=== PATIENT | female | born 1935 | race Caucasian/White ===

== ENCOUNTER 2020-01-17 05:39 | Day surgery (SDC) | payer MEDICARE, OTHER ==
[~2020-01-17] VITALS: Ht 165.1 cm; Wt 42.6 kg
[2020-01-17] VITALS (8 sets, daily range): BP systolic 115–129; BP diastolic 71–88
[~2020-01-17 05:39] MED LIST: HYDR-3964 PO; VANCOMYCIN INJ 1000 MG in NORMAL SALINE 250ml IV.SOLN IV ONE; cefazolin/dext.iso 2gm/100ml 100 ML IV ONE; famotidine 20mg tablet PO ONE; ringers solution, lacted 1,000 ML IV SCH
--- NOTE | 2020-01-17 06:30 | NUR ---
PATIENT HAS LARGE HEMATOMA TO RIGHT ARM BICEPT REGION DISTAL FROM RIGHT SHOULDER DRESSING. DR AGUILLON NOTIFIED AND HE IS AWARE AND STATED BRUISE WAS PRIOR TO SURGERY AND HAPPENED WHEN PATIENT FELL.
[2020-01-17] MEDS ORDERED: epiNEPHrine 1 mg/ml inj ONE (06:41)
[2020-01-17] MEDS ORDERED: ROPIVAcaine 0.5% (5mg/ml) 30ml vial ONE (06:41)
[2020-01-17] MEDS ORDERED: BUPIVAcaine/PF 2.5 mg/ml (0.25%) 30ml vial ONE (06:41)
[2020-01-17] MEDS ORDERED: ketorolac trometh. 30mg/ml inj. ONE (06:41)
[2020-01-17] MEDS ORDERED: cloNIDine hcl/PF 100mcg/ml inj ONE (06:41)
[2020-01-17] MEDS ORDERED: vancomycin 1,000mg inj ONE (06:41)
[2020-01-17 06:49] LABS: BASOPHILS # (AUTO) 0.1 X10'3 (0-0.2); BASOPHILS % (AUTO) 0.7 % (0-1); EOSINOPHILS # (AUTO) 0.1 X10'3 (0-0.9); EOSINOPHILS % (AUTO) 0.6 % (0-6); LYMPHOCYTES # (AUTO) 1.3 X10'3 (1.1-4.8); LYMPHOCYTES % (AUTO) 15.1 % (21-51); MEAN CORPUSCULAR HEMOGLOBIN 29.2 PG (27.0-31.0); MEAN CORPUSCULAR HGB CONC 33.3 g/dL (33.0-36.5); MEAN CORPUSCULAR VOLUME 87.8 FL (78-98); MONOCYTES % (AUTO) 11.4 % (2-12); NEUTROPHILS # (AUTO) 6.3 X10'3 (1.8-7.7); NEUTROPHILS % (AUTO) 72.2 % (42-75); PRE OP HEMATOCRIT 38.3 % (35.0-45.0); PRE OP HEMOGLOBIN 12.7 g/dL (12.0-16.0); PRE OP PLATELET COUNT 355 X10'3 (140-440); RED BLOOD COUNT 4.37 X10'6 (4.20-5.60); RED CELL DISTRIBUTION WIDTH 17.5 % (11.5-14.5)
[2020-01-17 06:56] LABS: ALBUMIN/GLOBULIN RATIO 0.8 (1.1-1.5); ALKALINE PHOSPHATASE 67 IU/L (46-116); BLOOD UREA NITROGEN 17 MG/DL (7-18); BUN/CREATININE RATIO 21.8 (6.6-38.0); CHLORIDE 105 MMOL/L (99-107); CREATININE 0.78 MG/DL (0.40-0.90); PRE OP ALT 11 U/L (30-65); PRE OP ANION GAP 5 (8-16); PRE OP AST 14 U/L (10-37); PRE OP BILIRUB, TOTAL 0.4 MG/DL (0.0-1.0); PRE OP GLUCOSE 88 MG/DL (70-104); PRE OP POTASSIUM 3.8 MMOL/L (3.4-5.1); PRE OP SODIUM 138 MMOL/L (135-145); TOTAL CARBON DIOXIDE 27.8 MMOL/L (24-32); TOTAL PROTEIN 6.7 G/DL (6.4-8.2); eGFR 71 ML/MIN
[2020-01-17] MEDS ORDERED: fentaNYL/PF 50MCG/1 ML 2ML syringe ONE ×2 (07:18→08:19)
[2020-01-17] MEDS ORDERED: ringers solution, lacted 1,000 ML IV SCH (08:09)
[2020-01-17] MEDS ORDERED: ondansetron/PF 4mg/2ml inj IV PRN (08:10)
[2020-01-17] MEDS ORDERED: HYDROmorphone inj. 0.5 MG/0.5 ML DISP.SYRIN IV PRN (08:10)
[2020-01-17] MEDS ORDERED: fentaNYL/PF 50MCG/1 ML 2ML syringe IV PRN (08:10)
[2020-01-17] MEDS ORDERED: propofol inj 20 ML IV ONE (08:14)
[2020-01-17] MEDS ORDERED: LIDOcaine 2% (20mg/ml) 5ml vial ONE (08:14)
[2020-01-17] MEDS ORDERED: rocuronium 10mg/ml inj IV ONE (08:14)
[2020-01-17] MEDS ORDERED: dexamethasone sod phosphate 4mg/ml inj. ONE (08:14)
[2020-01-17] MEDS ORDERED: neostigmine methylsulfate 1 MG/ML 10ml vial ONE (08:14)
[2020-01-17] MEDS ORDERED: ondansetron/PF 4mg/2ml inj ONE (08:14)
[2020-01-17] MEDS ORDERED: glycopyrrolate 0.2mg/ml inj ONE (08:14)
--- NOTE | 2020-01-17 08:35 | NUR ---
Received from OR via BED, accompanied by Anesthesiologist DR CLEMENS-- and report given by Anesthesiolgist. PATIENT A&OX4, DENIES PAIN, V/S WNL, NEUROVASCULAR CHECKS INTACT, 18G PIV LUE, SCD ON, DRESSING TO RIGHT ARM SHOULDER CDI WITH SLING ON AND COLD POWDER PACK.
[2020-01-17] MEDS ORDERED: ePHEDrine 50MG/ML INJ. ONE (08:47)
--- NOTE | 2020-01-17 09:35 | NUR ---
PATIENT A&OX4, DENIES PAIN, V/S WNL, NEUROVASCULAR CHECKS INTACT, 18G PIV LUE D/C, SCD OFF, DRESSING TO RIGHT ARM SHOULDER CDI WITH SLING ON AND COLD POWDER PACK. I HAVE REVIEWED D/C INSTRUCTIONS WITH PATIENT AND FAMILY AND THEY HAVE VERBALIZED UNDERSTANDING. PATIENT D/C HOME WITH ALL BELONGINGS AND FAMILY GAVE TRANSPORT HOME.
== END 2020-01-17 09:35 | disposition home or self-care (01) ==
LOC: PAS 05:39
PROVIDERS: ATTEND Orthopaedic Surgery
DX: S42.231A 3-part fracture of surgical neck of right humerus, initial encounter for closed fracture (principal); F17.210 Nicotine dependence, cigarettes, uncomplicated; J44.9 Chronic obstructive pulmonary disease, unspecified; Z79.899 Other long term (current) drug therapy; Z88.5 Allergy status to narcotic agent; W19.XXXA Unspecified fall, initial encounter; Y93.89 Activity, other specified; Y92.89 Other specified places as the place of occurrence of the external cause; Y99.8 Other external cause status
CPT/HCPCS: 23615; 36415; 71045; 73020; 76000; 80053; 85025; 93005; C1713; J0171; J0735; J1100; J1885; J2001; J2405; J2704; J2710; J3010; J3370; J3490; J7120; A4618; A6449; A7000; J2795